=== PATIENT | male | born 1950 | race Caucasian/White ===

== ENCOUNTER 2019-03-03 11:55 | Emergency (ER) | payer MEDICARE, OTHER ==
[~2019-03-03] VITALS: Ht 172.7 cm; Wt 93.0 kg
--- OUTSIDE RECORDS SUMMARY | 2019-03-03 11:57 | XMS REPORT | Clinical Summary ---
Author Author [facility] Address Unknown Phone Unavailable Care Team Providers Care Recovery Manager Name Role Phone Дмитрий Meyer MD PCP Allergies Comments Active Allergy Reactions Severity Noted Date No Known Drug Allergies 11/11/2015 Medications End Date Status Medication Sig Dispensed Refills Start Date Active metFORMIN (GLUCOPHAGE) 1 tablet(s) 0 850 MG tablet twice a day by oral route. Active lisinopril 1 tablet(s) 0 (PRINIVIL,ZESTRIL) 20 MG every day by tablet oral route. Active levothyroxine (SYNTHROID, 1 tablet(s) 0 LEVOTHROID) 75 MCG tablet every day by oral route. Active simvastatin (ZOCOR) 80 MG 1 tablet(s) 0 tablet every day by oral route. Active testosterone cypionate 0.25 mL. 0 200 mg/mL kit Active finasteride (PROSCAR) 5 Take 5 mg by 0 12/18/201 mg tablet mouth once 6 daily. Active tamsulosin (FLOMAX) 0.4 Take 0.4 mg 0 02/03/201 mg capsule,extended by mouth 2 6 release 24hr (two) times a day. Active glipiZIDE (GLUCOTROL) 5 Take 2.5 mg 0 MG tablet by mouth 2 (two) times a day before meals. Active aspirin (ECOTRIN) 81 MG Take 81 mg by 0 enteric coated tablet mouth daily. 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 Last Filed Vital Signs Not on file Plan of Treatment Health Maintenance Due Date Last Done Comments SHINGLES VACCINES (#1) 1999 65+ PNEUMOCOCCAL VACCINE 2014 (1 of 2 - PCV13) INFLUENZA VACCINE 03/08/2019 COLONOSCOPY SCREENING 08/08/2023 08/08/2013 Results Not on fileafter 03/02/2018 Insurance Type Payer Benefit Subscriber ID Effective Phone Address Plan / Dates Group Medicare MEDICARE MEDICARE xxxxxxxxxx 2014- ACE, PART A AND Present [place] [employer] xxxxxxxxxx 2015-P L [employer] [place] Advance Directives Patient has advance care planning documents on file. For more information, dedrick e contact: Ace Martinez [address] [place] [address]
--- OUTSIDE RECORDS SUMMARY | 2019-03-03 11:57 | XMS REPORT | Continuity of Care Document ---
Author Author [facility] [employer] Organization [facility] Address Unknown Phone Unavailable Care Team Providers Care Marketing Rep Name Role Phone [facility] [employer] Dawn Unavailable Unavailable Problems Problem Status Onset Date Classification Date Reported Comments Source I10 Active 03/29/2017 [facility] ESSENTIAL (PRIMARY) HYPERTENSION Active [facility] Medications No Data Provided for This Section Allergies, Adverse Reactions, Alerts No Known Medication Allergies Immunizations No Data Provided for This Section Results No Data Provided for This Section Pathology Reports No Data Provided for This Section Diagnostic Reports No Data Provided for This Section Consultation Notes No Data Provided for This Section Discharge Summaries No Data Provided for This Section History and Physicals No Data Provided for This Section Vital Signs No Data Provided for This Section Encounters Location Location Details Encounter Type Encounter Number Reason For Visit Attending Provider ADM Date DC Date Status Source [facility] Outpatient [id number] Kathy Henry 03/29/2017 03/30/2017 [facility] Procedures No Data Provided for This Section Assessment and Plan No Data Provided for This Section Plan of Care No Data Provided for This Section Social History Social History Date Source No data available for this section 03/30/2017 [facility] Family History No Data Provided for This Section Advance Directives No Data Provided for This Section Functional Status No Data Provided for This Section
== END 2019-03-03 12:38 | disposition home or self-care (01) ==
LOC: ER 11:55
DX: S61.211A Laceration without foreign body of left index finger without damage to nail, initial encounter (principal); I10 Essential (primary) hypertension; F41.9 Anxiety disorder, unspecified
CPT/HCPCS: 99284

== ENCOUNTER 2019-03-14 15:14 | Emergency (ER) | payer MEDICARE, OTHER ==
[~2019-03-14] VITALS: Ht 172.7 cm; Wt 93.0 kg
--- OUTSIDE RECORDS SUMMARY | 2019-03-14 15:16 | XMS REPORT | Clinical Summary ---
Author Author [facility] Address Unknown Phone Unavailable Care Team Providers Care Machine Whitener Name Role Phone Дмитрий Meyer MD PCP [...] SCREENING 08/08/2023 08/08/2013 Results Not on fileafter 03/13/2018 Insurance Type Payer Benefit Subscriber ID Effective Phone Address Plan / Dates Group Medicare MEDICARE MEDICARE xxxxxxxxxx 2014- [employer], PART [place] Present [place] [employer] xxxxxxxxxx 2015-P L [employer] [place] Advance Directives Patient has advance care planning documents on file. For more information, dedrick e contact: Ace Martinez [address] [place] [address]
--- OUTSIDE RECORDS SUMMARY | 2019-03-14 15:17 | XMS REPORT | Continuity of Care Document ---
Author Author [facility] [employer] Organization [facility] [email or web address] Address Unknown Phone Unavailable Care Team Providers Care Yard Caller Name Role Phone [facility] [employer] [place] Unavailable Unavailable Problems Problem Status Onset Date Classification Date Reported Comments Source I10 Active 03/29/2017 [facility] ESSENTIAL (PRIMARY) HYPERTENSION Active [facility] Medications No Data Provided for This Section [...] Provider ADM Date DC Date Status Source [facility] [id number] Kathy Henry 03/29/2017 03/30/2017 [facility] Procedures No Data Provided for This Section Assessment and Plan No Data Provided for This Section Plan of Care No Data Provided for This Section Social History Social History Date Source No data available for this section 03/30/2017 [facility] Family History No Data Provided for This Section Advance Directives No Data Provided for This Section Functional Status No Data Provided for This Section
[2019-03-14] MEDS ORDERED: LIDOCAINE 1% W/EPINEPHRINE 20 ML VIAL INJ ONE (15:30)
[2019-03-14] MEDS ORDERED: TETANUS/DIPHTHERIA TOX ADULT 0.5 ML SYR IM ONE (15:30)
[2019-03-14 18:01] VITALS: BP 123/66
== END 2019-03-14 18:07 | disposition home or self-care (01) ==
LOC: ER 15:14
DX: S81.012A Laceration without foreign body, left knee, initial encounter (principal); W01.198A Fall on same level from slipping, tripping and stumbling with subsequent striking against other object, initial encounter; Y93.H3 Activity, building and construction; Y92.002 Bathroom of unspecified non-institutional (private) residence as the place of occurrence of the external cause; I10 Essential (primary) hypertension; E11.9 Type 2 diabetes mellitus without complications; F41.9 Anxiety disorder, unspecified
CPT/HCPCS: 99283